=== PATIENT | female | born 2000 | race Caucasian/White ===

== ENCOUNTER 2025-05-05 12:56 | Emergency (ER) | payer OTHER, SELFPAY ==
[2025-05-05 12:56] VITALS: BP 106/68; PULSE 70; RESP 16; TEMP 36.4; O2SAT 100
--- NOTE | 2025-05-05 13:08 | ED.BACK ---
HPI - Back Pain/Injury General Chief Complaint: Back Pain/Injury Stated Complaint: back pain Time Seen by Provider: 05/05/25 13:02 Source: patient Mode of arrival: ambulatory Limitations: no limitations History of Present Illness HPI Narrative: this is a 24-year-old female with no significant past medical history who presents with some left lower back pain that started 2 days ago after she was doing heavy lifting and moving. There is currently no radiation of her pain no dysuria no hematuria no fever chills no saddle paresthesias no abdominal pain no nausea vomiting. MD elicited complaint: back pain Onset (ago): day(s) Severity: moderate Pain scale (0-10): 6 Quality: aching and spasming Location: lumbar spine Related Data Allergies Allergy/AdvReac Type Severity Reaction Status Date / Time No Known Allergies Allergy Verified 05/05/25 13:16 Review of Systems Review of Systems: All systems reviewed & are unremarkable except as noted in HPI and below Exam Const: General: healthy appearing Nutritional Appearance: well nourished Orientation/consciousness: patient oriented x3 Limitations: no limitations Resp: Effort & Inspection: normal respiratory effort Auscultation: clear to auscultation bilaterally Cardio: Rate: regular rate Rhythm: regular rhythm GI: GI Palp: Yes Soft to palpation Auscultation: normal bowel sounds : General: Yes bladder normal to palpation Skin: General skin exam: normal color Rashes: no rashes Neuro: Other: Negative straight raising test Course Course Emergency Course: medical decision making narrative: The patient was evaluated by myself in the emergency department. History obtained from the patient to his independent historian physical exam performed in witnessed by [facility]. Patient received 10mg p.o. Toradol for low back strain. Repeat assessment Patient doing well on repeat exam no acute distress Symptoms are stable since arrival to the emergency department with some moderate improvement. Repeat vitals are stable patient agrees with discussion and after shared medical decision making and agrees with discharge All questions answered to the patient's satisfaction Advised follow-up with primary in the next 3 to 5 days. Vital Signs Vital signs: Vital Signs Temperature 36.4 C 05/05/25 12:56 Pulse Rate 70 05/05/25 12:56 Respiratory Rate 16 05/05/25 12:56 Blood Pressure 106/68 05/05/25 12:56 Pulse Oximetry 100 05/05/25 12:56 Oxygen Delivery Room Air 05/05/25 12:56 Temperature 36.4 C 05/05/25 12:56 Pulse Rate 70 05/05/25 12:56 Respiratory Rate 16 05/05/25 12:56 Blood Pressure 106/68 05/05/25 12:56 Pulse Oximetry 100 05/05/25 12:56 Oxygen Delivery Room Air 05/05/25 12:56 MDM Differential Diagnosis Differential Diagnosis: back strain Critical Care Time Critical Care Time Critical Care Time: No Discharge Plan Discharge Clinical Impression: Strain of lumbar region Qualifiers: Encounter type: initial encounter Qualified Code(s): S39.012A - Strain of muscle, fascia and tendon of lower back, initial encounter Patient Disposition: Home Condition: Stable Instructions: Antibiotic Form, Low Back Strain (ED) Additional Instructions: advised patient to take medication as prescribed can use a warm compress to affected area and follow-up with primary if symptoms persist or worsen. Patient Language: Slovenian Prescriptions: New cyclobenzaprine 5 mg tablet 5 mg PO TID Qty: 20 0RF naproxen 500 mg tablet 500 mg PO BID PRN (Reason: pain) Qty: 14 0RF Follow-up/Referrals: UNKNOWN,DOCTOR [Primary Care Provider] Time of Disposition: 13:15
[2025-05-05] MEDS: KETOROLAC 10 MG TABLET PO (13:18)
[2025-05-05 13:39] VITALS: BP 106/68; PULSE 70; RESP 16; TEMP 36.4; O2SAT 100
== END 2025-05-05 13:39 | disposition home or self-care (01) ==
LOC: CHSED 13:29
PROVIDERS: Emergency Provider Emergency Medicine; PCP Family Medicine
DX: S39.012A Strain of muscle, fascia and tendon of lower back, initial encounter (principal); X50.0XXA Overexertion from strenuous movement or load, initial encounter
CPT/HCPCS: 96372; 99283; A9270